=== PATIENT | female | born 1970 | race Asian ===

== ENCOUNTER 2016-04-14 17:36 | Emergency (ER) | payer OTHER | END 2016-04-14 19:27 | disposition home or self-care (01) | LOC: ER 17:36 | DX: S39.012A Strain of muscle, fascia and tendon of lower back, initial encounter (principal); S70.01XA Contusion of right hip, initial encounter; S80.01XA Contusion of right knee, initial encounter; V59.49XA Driver of pick-up truck or van injured in collision with other motor vehicles in traffic accident, initial encounter; Y92.410 Unspecified street and highway as the place of occurrence of the external cause | CPT/HCPCS: 72100 ==